=== PATIENT | male | born 2000 | race Caucasian/White ===

== ENCOUNTER 2023-06-04 18:37 | Emergency (ER) | payer OTHER, SELFPAY ==
[2023-06-04 18:44] VITALS: BP 154/71; PULSE 77; RESP 18; TEMP 36.6; O2SAT 97; BMI 25.8
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
[2023-06-04 19:17] VITALS: TEMP 36.6
[2023-06-04] MEDS: ONDANSETRON ODT 4 MG TAB PO (19:17)
[2023-06-04] MEDS: KETOROLAC 30 MG/ML inj IM (19:17)
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
[2023-06-04 21:09] VITALS: BP 135/68; PULSE 74; RESP 18; TEMP 36.7; O2SAT 97
[2023-06-04 21:10] VITALS: TEMP 36.7
[2023-06-04 21:23] VITALS: BP 135/68; PULSE 74; RESP 18; TEMP 36.7
== END 2023-06-04 21:23 | disposition home or self-care (01) ==
PROVIDERS: Emergency Provider Student in an Organized Health Care Education/Training Program
DX: S02.401A Maxillary fracture, unspecified side, initial encounter for closed fracture (principal); S62.114A Nondisplaced fracture of triquetrum [cuneiform] bone, right wrist, initial encounter for closed fracture; S02.31XA Fracture of orbital floor, right side, initial encounter for closed fracture; V18.0XXA Pedal cycle driver injured in noncollision transport accident in nontraffic accident, initial encounter
CPT/HCPCS: 29125; 70450; 70486; 73110; 96372; 99283; 99284; 99285; A9270; J1885